=== PATIENT | female | born 1995 | race Two or more races ===

== ENCOUNTER 2021-12-30 20:43 | Emergency (ER) | payer OTHER ==
[2021-12-30] MEDS ORDERED: FAMOTIDINE 20 MG TABLET PO ONE (21:00)
[2021-12-30] MEDS ORDERED: MAG HYDROX/AL HYDROX/SIMETH 30 ML UNIT-DOSE CUP PO ONE (21:00)
[2021-12-30] MEDS ORDERED: ACETAMINOPHEN 500 MG TABLET (FP) PO ONE (21:01)
[2021-12-30 21:10] VITALS: BP 136/95; PULSE 57; TEMP 98; BMI 32.9
[2021-12-30 21:45] LABS: EPITHELIAL CELLS FEW /hpf
[2021-12-30] MEDS ORDERED: ACETAMINOPHEN 500 MG TABLET (FP) ONE (21:46)
[2021-12-30] MEDS ORDERED: FAMOTIDINE 20 MG TABLET ONE (21:46)
[2021-12-30] MEDS ORDERED: MAG HYDROX/AL HYDROX/SIMETH 30 ML UNIT-DOSE CUP ONE (21:46)
[2021-12-30] MEDS ORDERED: MAGNESIUM CITRATE 300 ML BOTTLE PO ONE (22:09)
[2021-12-30] MEDS ORDERED: MAGNESIUM CITRATE 300 ML BOTTLE ONE (22:13)
== END 2021-12-30 22:18 | disposition home or self-care (01) ==
LOC: FER 20:43
DX: K59.00 Constipation, unspecified (principal); R10.9 Unspecified abdominal pain; M54.50 Low back pain, unspecified
CPT/HCPCS: 74176-TC; 81003; 81015; 81025; 87086; 99284-25

== ENCOUNTER 2023-01-15 19:39 | Emergency (ER) | payer OTHER ==
[2023-01-15 19:48] VITALS: BP 130/100; PULSE 101; RESP 18; TEMP 99; BMI 32.9
[2023-01-15 20:35] LABS: HCG,QUALITATIVE URINE Negative
[2023-01-15] MEDS ORDERED: IBUPROFEN 600 MG TABLET (FP) PO ONE ×2 (20:37→20:39)
[2023-01-15] MEDS ORDERED: hydrOXYzine PAMOATE 25 MG CAPSULE (FP) PO ONE ×2 (20:37→20:38)
[2023-01-15 20:40] LABS: EPITHELIAL CELLS FEW /hpf
== END 2023-01-15 22:38 | disposition home or self-care (01) ==
LOC: FER 19:39
DX: S22.019A Unspecified fracture of first thoracic vertebra, initial encounter for closed fracture (principal); S43.402A Unspecified sprain of left shoulder joint, initial encounter; R51.9 Headache, unspecified; M54.2 Cervicalgia; V49.40XA Driver injured in collision with unspecified motor vehicles in traffic accident, initial encounter; Y93.I9 Activity, other involving external motion
CPT/HCPCS: 70450-TC; 72125-TC; 73030-TC-LT-FY; 81003; 81015; 81025; 84703; 99285-25